=== PATIENT | female | born 1955 | race Two or more races ===

== ENCOUNTER 2017-07-15 08:48 | Inpatient (IN) | payer MEDICAID ==
[~2017-07-15] VITALS: Ht 157.5 cm; Wt 95.0 kg
[2017-07-15] MEDS ORDERED: PANTOPRAZOLE 40 MG/10 ML VIAL IV STA (09:43)
[2017-07-15] MEDS ORDERED: ONDANSETRON HCL 4 MG/2 ML VIAL IV ONE (09:45)
[2017-07-15] MEDS ORDERED: MORPHINE SULFATE 4 MG/ML SYR/VIAL IV ONE (09:45)
[2017-07-15 10:04] LABS: Basophils # (auto) 0 uL; Basophils % (auto) 0.3 % (0.0-2.0); Eosinophils # (auto) 0.1 uL; Hematocrit 38.7 % (36.0-46.0); Hemoglobin 13.1 g/dL (12.2-16.2); Lymphocytes # (auto) 1.2 uL; Lymphocytes % (auto) 14.5 % (10.0-50.0); Mean Corpuscular Hemoglobin 29.2 pg (28.0-32.0); Mean Corpuscular Hgb Conc. 33.7 g/dL (32.0-36.0); Mean Corpuscular Volume 86.6 fL (80.0-100.0); Monocytes # (auto) 0.3 uL; Monocytes % (auto) 3.1 % (0.0-12.0); Neutrophils # (auto) 6.8 uL; Neutrophils % (auto) 81.1 % (37.0-80.0); Nucleated Red Blood Cells % 0.1 %; Platelet Count (auto) 248 10^3/uL (140-450); Red Blood Cells 4.47 10^6/uL (4.0-5.20); Red Cell Distribution Width 13.9 % (11.8-14.3); White Blood Cell 8.4 10^3/uL (4.4-10.8)
[2017-07-15 10:27] LABS: Amylase 111 U/L (25-115); Lipase 570 U/L (73-393)
[2017-07-15] MEDS ORDERED: MORPHINE SULF INJ 2 MG/ML SYRINGE 1ML ONE (10:32)
[2017-07-15 10:44] LABS: Albumin 3.7 g/dL (3.4-5.0); BUN/Creatinine Ratio 11.8; Bilirubin, Total 0.4 mg/dL (0.2-1.0); Calcium 8.6 mg/dL (8.5-10.1); Potassium 3.7 mmol/L (3.5-5.1); Total Protein 7.8 g/dL (6.4-8.2)
[2017-07-15] MEDS ORDERED: MORPHINE SULFATE 10 MG/ML INJ 1ML SDV IV ONE (10:45)
[2017-07-15] MEDS ORDERED: LORazepam 2MG/ML-1ML VIAL IV PRN (11:15)
[2017-07-15] MEDS ORDERED: NITROGLYCERIN 0.4 MG SL TAB SL PRN (11:15)
[2017-07-15] MEDS ORDERED: PANTOPRAZOLE 40 MG/10 ML VIAL IV ONE (11:15)
[2017-07-15] MEDS ORDERED: DEXTROSE (50%) 50ML SYRG IV PRN (11:15)
[2017-07-15] MEDS ORDERED: MORPHINE SULF INJ 2 MG/ML SYRINGE 1ML IV PRN (11:15)
[2017-07-15] MEDS ORDERED: MORPHINE SULFATE 10 MG/ML INJ 1ML SDV IV PRN (11:15)
[2017-07-15] MEDS ORDERED: cefTRIAXone 1GM/10ml IVPUSH 10 ML IV ONE (11:15)
[2017-07-15] MEDS: SODIUM CHLORIDE 0.9% 1,000 ML IV SCH ×3 (11:38→21:39)
[2017-07-15] MEDS: InsuLIN REG 1unit/0.01ml Soln (100units/ml) SC SCH ×2 (12:01→18:00)
[2017-07-15] MEDS: ACCU-CHEK COMFORT CURVE STRIP VI SCH ×2 (12:01→18:10)
[2017-07-15] MEDS: metroNIDAZOLE 500MG/100ML 100 ML IV SCH ×2 (14:06→21:15)
[2017-07-15] MEDS: PROMETHAZINE HCL 25 MG/ML 1ML IV PRN (16:30)
[2017-07-15 18:48] LABS: Urine Bacteria NONE SEEN /hpf (None Seen); Urine Blood Negative /uL (Negative); Urine Hyaline Cast FEW /lpf (0 - 2); Urine Specific Gravity 1.015 (1.001-1.035); Urine WBC 2 /hpf (0 - 5)
[2017-07-15 20:24] VITALS: BP 115/54
[2017-07-15] MEDS: PANTOPRAZOLE 40 MG/10 ML VIAL IV SCH (21:15)
[2017-07-15 22:08] VITALS: BP 115/54
[2017-07-16] MEDS: ACCU-CHEK COMFORT CURVE STRIP VI SCH ×3 (00:09→11:47)
[2017-07-16] MEDS: MORPHINE SULF INJ 2 MG/ML SYRINGE 1ML IV PRN ×2 (03:16→09:43)
[2017-07-16 04:59] VITALS: BP 109/47
[2017-07-16] MEDS: InsuLIN REG 1unit/0.01ml Soln (100units/ml) SC SCH ×3 (05:58→11:47)
[2017-07-16] MEDS: metroNIDAZOLE 500MG/100ML 100 ML IV SCH ×2 (05:58→14:00)
[2017-07-16 06:42] LABS: Basophils # (auto) 0 uL; Basophils % (auto) 0.7 % (0.0-2.0); Eosinophils # (auto) 0.1 uL; Hematocrit 30.5 % (36.0-46.0); Hemoglobin 10.4 g/dL (12.2-16.2); Lymphocytes # (auto) 2.2 uL; Lymphocytes % (auto) 40.4 % (10.0-50.0); Mean Corpuscular Hemoglobin 29.8 pg (28.0-32.0); Mean Corpuscular Hgb Conc. 34.3 g/dL (32.0-36.0); Mean Corpuscular Volume 86.9 fL (80.0-100.0); Monocytes # (auto) 0.5 uL; Monocytes % (auto) 9.2 % (0.0-12.0); Neutrophils # (auto) 2.7 uL; Neutrophils % (auto) 48.7 % (37.0-80.0); Nucleated Red Blood Cells % 0.1 %; Platelet Count (auto) 203 10^3/uL (140-450); Red Cell Distribution Width 13.9 % (11.8-14.3); White Blood Cell 5.5 10^3/uL (4.4-10.8)
[2017-07-16 07:00] LABS: Calcium 8.1 mg/dL (8.5-10.1); Potassium 4.1 mmol/L (3.5-5.1)
[2017-07-16 07:01] LABS: BUN/Creatinine Ratio 12.1
[2017-07-16 07:05] LABS: Bilirubin, Total 0.2 mg/dL (0.2-1.0); Total Protein 6.6 g/dL (6.4-8.2)
[2017-07-16 07:07] LABS: Cholesterol 169 mg/dL (< 200); HDL Cholesterol 39 mg/dL (40-59); LDL Cholesterol 124 mg/dL (< 100); Triglycerides 98 mg/dL (< 150)
[2017-07-16] MEDS: SODIUM CHLORIDE 0.9% 1,000 ML IV SCH ×2 (07:23→13:44)
[2017-07-16 09:00] VITALS: BP 114/59
[2017-07-16] MEDS ORDERED: cefTRIAXone 1GM/10ml IVPUSH 10 ML IV SCH (09:00)
[2017-07-16] MEDS: PANTOPRAZOLE 40 MG/10 ML VIAL IV SCH (09:33)
[2017-07-16] MEDS ORDERED: PANTOPRAZOLE 40 MG/10 ML VIAL IV SCH (10:00)
[2017-07-16] MEDS: PROMETHAZINE HCL 25 MG/ML 1ML IV PRN (11:33)
[2017-07-16 11:56] VITALS: BP 114/59
[2017-07-16 12:31] VITALS: BP 114/59
[2017-07-16 13:00] VITALS: BP 125/63
== END 2017-07-16 13:00 | disposition home or self-care (01) | DRG 439 ==
LOC: ER 08:48 → TELE 08:49 → TELE-CENTR 20:00
PROVIDERS: ADMIT Internal Medicine; ATTEND Family Medicine
DX: K85.90 Acute pancreatitis without necrosis or infection, unspecified (principal); E87.1 Hypo-osmolality and hyponatremia; E11.21 Type 2 diabetes mellitus with diabetic nephropathy; K76.0 Fatty (change of) liver, not elsewhere classified; N18.3 Chronic kidney disease, stage 3 (moderate); E11.65 Type 2 diabetes mellitus with hyperglycemia; E86.0 Dehydration; E11.22 Type 2 diabetes mellitus with diabetic chronic kidney disease; I12.9 Hypertensive chronic kidney disease with stage 1 through stage 4 chronic kidney disease, or unspecified chronic kidney disease; E66.9 Obesity, unspecified; J20.9 Acute bronchitis, unspecified; K58.9 Irritable bowel syndrome, unspecified; Z90.49 Acquired absence of other specified parts of digestive tract; Z68.38 Body mass index [BMI] 38.0-38.9, adult
CPT/HCPCS: 36415; 71046; 74176; 76705; 80053; 80061; 81001; 82150; 82962; 83036; 83690; 83880; 84484; 85025; 85652; 86141; 87086; 93005; 94761; 96374; 96375; C9113; J1815; J2405; J3490